=== PATIENT | male | born 1980 | race Hispanic/Latino ===

== ENCOUNTER 2018-08-21 09:50 | Emergency (ER) | payer OTHER ==
[2018-08-21 10:22] LABS: BASOPHILS % (AUTO) 0.3 % (0.0-5.0); HEMATOCRIT 39.8 % (42-54); LYMPHOCYTES % (AUTO) 11.9 % (21.0-51.0); MEAN CORPUSCULAR HEMOGLOBIN 29.7 pg (27.0-33.0); MEAN CORPUSCULAR HGB CONC 34.1 g/dL (32.0-36.0); MEAN CORPUSCULAR VOLUME 87.1 fL (79-99); MONOCYTES % (AUTO) 4.6 % (3.0-13.0); NEUTROPHILS % (AUTO) 82.2 % (40.0-77.0); PLATELET COUNT (AUTO) 338 K/uL (130-400); RED BLOOD CELL COUNT(AUTO) 4.57 MIL/uL (4.50-6.20); RED CELL DISTRIBUTION WIDTH 13.5 % (11.0-15.5)
[2018-08-21 10:27] LABS: APPEARANCE,URINE CLEAR (CLEAR); BILIRUBIN,URINE NEGATIVE (NEGATIVE); COLOR,URINE YELLOW (YELLOW); GLUCOSE, URINE (UA) NEGATIVE (NEGATIVE); KETONES,URINE NEGATIVE (NEGATIVE); LEUKOCYTE ESTERASE ,URINE NEGATIVE (NEGATIVE); NITRATE,URINE NEGATIVE (NEGATIVE); OCCULT BLOOD,URINE TRACE-INTACT (NEGATIVE); PH,URINE 6.5 (5.0-8.0); PROTEIN,URINE TRACE mg/dL (NEGATIVE); UROBILINOGEN,URINE 0.2 mg/dL (0.2-1.0)
[2018-08-21] MEDS ORDERED: SODIUM CHLORIDE 0.9% 1000ML 1,000 ML IV ONE (10:27)
[2018-08-21] MEDS ORDERED: ONDANSETRON HCL 4 MG/2 ML VIAL ONE (10:27)
[2018-08-21 10:30] LABS: POTASSIUM 3.5 mmol/L (3.5-5.1)
[2018-08-21 10:34] LABS: ALBUMIN 2.9 g/dL (3.5-5.0); BILIRUBIN,DIRECT 0.1 mg/dL (0.0-0.3); BILIRUBIN,TOTAL 0.4 mg/dL (0.2-1.0); TOTAL PROTEIN, SERUM 7.9 g/dL (6.0-8.3)
[2018-08-21 10:46] LABS: BACTERIA,URINE None Seen /HPF (None Seen); RBC,URINE 0-1 /HPF (0-1); SQUAMOUS EPITHELIAL CELL,UR Rare /HPF (0-2); WBC,URINE None Seen /HPF (0-1)
== END 2018-08-21 11:23 | disposition home or self-care (01) ==
LOC: EDH 09:50
DX: K52.9 Noninfective gastroenteritis and colitis, unspecified (principal); R53.1 Weakness; F43.10 Post-traumatic stress disorder, unspecified; Z88.0 Allergy status to penicillin
CPT/HCPCS: 36415; 80048; 80076; 81001; 83690; 85025; 93005; 96361; 96374; 99285; J2405; J7030

== ENCOUNTER 2018-11-14 13:54 | Emergency (ER) | payer OTHER ==
[2018-11-14] MEDS ORDERED: ACETAMINOPHEN EXTRA STRENGTH 500 MG TABLET ONE (14:28)
[2018-11-14 14:32] LABS: BASOPHILS % (AUTO) 0.2 % (0.0-5.0); HEMATOCRIT 45.5 % (42-54); LYMPHOCYTES % (AUTO) 4.2 % (21.0-51.0); MEAN CORPUSCULAR HEMOGLOBIN 29.7 pg (27.0-33.0); MEAN CORPUSCULAR HGB CONC 33.8 g/dL (32.0-36.0); MEAN CORPUSCULAR VOLUME 87.9 fL (79-99); MONOCYTES % (AUTO) 2.3 % (3.0-13.0); NEUTROPHILS % (AUTO) 93.3 % (40.0-77.0); PLATELET COUNT (AUTO) 234 K/uL (130-400); RED BLOOD CELL COUNT(AUTO) 5.18 MIL/uL (4.50-6.20); RED CELL DISTRIBUTION WIDTH 14.5 % (11.0-15.5); WHITE BLOOD COUNT (AUTO) 16.9 K/uL (4.8-10.8)
[2018-11-14 14:45] LABS: CREATININE 1.3 mg/dL (0.5-1.5); POTASSIUM 3.8 mmol/L (3.5-5.1)
[2018-11-14 14:50] LABS: ALBUMIN 3.7 g/dL (3.5-5.0); BILIRUBIN,TOTAL 0.7 mg/dL (0.2-1.0); TOTAL PROTEIN, SERUM 8.6 g/dL (6.0-8.3)
[2018-11-14] MEDS ORDERED: ONDANSETRON HCL 4 MG/2 ML VIAL ONE (14:56)
[2018-11-14] MEDS ORDERED: SODIUM CHLORIDE 0.9% 1000ML 1,000 ML IV ONE (14:57)
[2018-11-14] MEDS ORDERED: KETOROLAC TROMETHAMINE 30MG/ML ONE (14:57)
[2018-11-14 15:07] LABS: APPEARANCE,URINE Clear (CLEAR); BILIRUBIN,URINE Negative (NEGATIVE); COLOR,URINE Yellow (YELLOW); GLUCOSE, URINE (UA) Negative (NEGATIVE); KETONES,URINE 15 mg/dL (NEGATIVE); LEUKOCYTE ESTERASE ,URINE Negative (NEGATIVE); NITRATE,URINE Negative (NEGATIVE); OCCULT BLOOD,URINE Trace (NEGATIVE); PROTEIN,URINE POS 1+ mg/dL (NEGATIVE)
[2018-11-14 15:26] LABS: BACTERIA,URINE Rare /HPF (None Seen); RBC,URINE 0-1 /HPF (0-1); SQUAMOUS EPITHELIAL CELL,UR Rare /HPF (0-2); WBC,URINE 0-1 /HPF (0-1)
[2018-11-14] MEDS ORDERED: AZITHROMYCIN 250 MG TABLET PO ONE (16:19)
== END 2018-11-14 16:46 | disposition home or self-care (01) ==
LOC: EDH 13:54
DX: J15.9 Unspecified bacterial pneumonia (principal); R11.2 Nausea with vomiting, unspecified; E86.9 Volume depletion, unspecified; F43.10 Post-traumatic stress disorder, unspecified; Z88.0 Allergy status to penicillin; Z98.890 Other specified postprocedural states; Z72.0 Tobacco use
CPT/HCPCS: 36415; 71046; 80053; 81001; 83605; 83690; 85025; 87040 ×2; 87804 ×2; 96361; 96374; 96375; 99285; J1885; J2405; J7030

== ENCOUNTER 2018-11-18 09:57 | Inpatient (IN) | payer OTHER ==
[~2018-11-18] VITALS: Ht 167.6 cm; Wt 95.5 kg
[2018-11-18] MEDS ORDERED: SODIUM CHLORIDE 0.9% 1000ML 1,000 ML IV ONE (10:18)
[2018-11-18] MEDS ORDERED: KETOROLAC TROMETHAMINE 15MG/ML ONE (10:18)
[2018-11-18 10:46] LABS: BASOPHILS % (AUTO) 0.2 % (0.0-5.0); EOSINOPHILS % (AUTO) 0.8 % (0.0-8.0); HEMATOCRIT 40.5 % (42-54); LYMPHOCYTES % (AUTO) 9.5 % (21.0-51.0); MEAN CORPUSCULAR HEMOGLOBIN 30.4 pg (27.0-33.0); MEAN CORPUSCULAR VOLUME 86.9 fL (79-99); MONOCYTES % (AUTO) 3.5 % (3.0-13.0); PLATELET COUNT (AUTO) 337 K/uL (130-400); RED BLOOD CELL COUNT(AUTO) 4.66 MIL/uL (4.50-6.20); RED CELL DISTRIBUTION WIDTH 14.5 % (11.0-15.5); WHITE BLOOD COUNT (AUTO) 9.8 K/uL (4.8-10.8)
[2018-11-18] MEDS ORDERED: ALBUTEROL SULFATE 0.083% 2.5 MG/3 ML INH IH ONE (10:55)
[2018-11-18 10:56] LABS: CREATININE 1.1 mg/dL (0.5-1.5); POTASSIUM 3.3 mmol/L (3.5-5.1)
[2018-11-18 11:00] LABS: ALBUMIN 2.7 g/dL (3.5-5.0); BILIRUBIN,TOTAL 0.5 mg/dL (0.2-1.0); TOTAL PROTEIN, SERUM 7.9 g/dL (6.0-8.3)
[2018-11-18 11:13] LABS: ABG BASE EXCESS 0.7 mmol/L (-2.0-3.0); ABG HCO3 23.2 mmol/L (21.0-28.0); ABG OXYGEN SATURATION 94.5 % (95.0-99.0); ABG PCO2 32 mmHg (35-48)
[2018-11-18] MEDS ORDERED: METHYLPREDNISOLONE SOD SUCC 40MG/ML 1ML ONE (11:14)
[2018-11-18 11:35] LABS: APPEARANCE,URINE Clear (CLEAR); BILIRUBIN,URINE Negative (NEGATIVE); COLOR,URINE Yellow (YELLOW); GLUCOSE, URINE (UA) Negative (NEGATIVE); KETONES,URINE Negative (NEGATIVE); LEUKOCYTE ESTERASE ,URINE Negative (NEGATIVE); NITRATE,URINE Negative (NEGATIVE); OCCULT BLOOD,URINE Negative (NEGATIVE); PROTEIN,URINE Trace mg/dL (NEGATIVE); UROBILINOGEN,URINE 0.2 mg/dL (0.2-1.0)
[2018-11-18 11:50] LABS: BACTERIA,URINE Few /HPF (None Seen); MUCUS,URINE Moderate LPF (None Seen); RBC,URINE None Seen /HPF (0-1); WBC,URINE 0-1 /HPF (0-1)
[2018-11-18] MEDS ORDERED: MAGNESIUM OXIDE 400 MG TABLET PO ONE (12:13)
[2018-11-18] MEDS ORDERED: POTASSIUM CHLORIDE 20 MEQ ERTAB PO ONE (12:14)
[2018-11-18] MEDS ORDERED: SODIUM CHLORIDE 0.9% 50 ML IV ONE (12:16)
[2018-11-18] MEDS ORDERED: CEFTRIAXONE SODIUM 1 GM ONE (12:16)
[2018-11-18] MEDS ORDERED: POTASSIUM CHLORIDE 20MEQ/100ML 100 ML IV PRN (15:45)
[2018-11-18] MEDS ORDERED: LIDOCAINE HCL-MPF 1% 2ML VIAL IV PRN (15:45)
[2018-11-18] MEDS ORDERED: POTASSIUM CHLORIDE 10% ELIXIR 20 MEQ/15 ML UDCUP PO PRN (15:45)
[2018-11-18 16:00] VITALS: BP 126/83
[2018-11-18] MEDS ORDERED: DOXYCYCLINE 100MG+NS 250ML 250 ML IV SCH (16:00)
[2018-11-18] MEDS ORDERED: GUAIFENESIN-CODEINE 5 ML SYRUP PO PRN (16:00)
--- NOTE | 2018-11-18 16:05 | NUR ---
Pt VAPS Addendum: 11/18/18 at 1605 by CRYS RUBY RT Amended: Links added.
[2018-11-18] MEDS: CEFTRIAXONE SODIUM 1 GM IVP SCH (17:22)
[2018-11-18] MEDS: AZITHROMYCIN 500MG+NS 250ML 250 ML IV SCH (17:22)
[2018-11-18] MEDS: SODIUM CHLORIDE 0.9% 1000ML 1,000 ML IV SCH (17:23)
[2018-11-18] MEDS: METHYLPREDNISOLONE SOD SUCC 40MG/ML 1ML IVP SCH ×2 (17:25→23:18)
[2018-11-18] MEDS ORDERED: SERT100T12 PO (17:38)
[2018-11-18] MEDS ORDERED: TRAZ-185 PO (17:38)
[2018-11-18] MEDS ORDERED: OMEP-50 PO (17:38)
[2018-11-18] MEDS: IPRATROPIUM/ALBUTEROL SULFATE 3 ML SOLUTION IH SCH ×2 (18:19→23:23)
[2018-11-18 19:49] VITALS: BP 140/89
[2018-11-18] MEDS: FAMOTIDINE/PF 20 MG/2 ML VIAL IV SCH (20:15)
--- NOTE | 2018-11-18 20:20 | NUR ---
MEDS SHIFT ASSESSMENT DONE, PLEASE REFER TO CHART. DUE MEDS ADMINISTERED, TOLERATED WELL. KEPT RESTED AND COMFORTABLE WITH HOB ELEVATED. CALL LIGHT WITHIN REACH. FAMILY AT BEDSIDE. WILL MONITOR PT. Addendum: 11/18/18 at 2204 by MARLEEN DUENAS RN RN Amended: Links added.
[2018-11-18] MEDS ORDERED: BENZONATATE 100 MG CAPSULE PO SCH (21:00)
[2018-11-18] MEDS ORDERED: FAMOTIDINE/PF 20 MG/2 ML VIAL IV SCH (21:00)
[2018-11-18] MEDS: POTASSIUM CHLORIDE 20 MEQ ERTAB PO PRN ×2 (21:54→23:19)
--- NOTE | 2018-11-18 21:54 | NUR ---
KCL CONTINUED PO POTASSIUM PROTOCOL KCL LEVEL=3.3. PT TOLERATED MEDS WELL. KEPT RESTED. WILL CONTINUE TO MONITOR.
[2018-11-18 23:44] VITALS: BP 148/75
--- NOTE | 2018-11-19 02:00 | NUR ---
ROUNDS PT FAIRLY ASLEEP WITH RESPIRATIONS EVEN AND UNLABORED. NO NOTED DISTRESS. KEPT UNDISTURBED FOR NOW. CALL LIGHT WITHIN REACH. WILL MONITOR PT.
[2018-11-19] MEDS: CEFTRIAXONE SODIUM 1 GM IVP SCH ×2 (03:32→17:28)
[2018-11-19 04:00] VITALS: BP 149/89
--- NOTE | 2018-11-19 06:02 | NUR ---
GUEST PT REQUESTING A GUEST TRAY FOR HIS FOR BREAKFAST. RESOURCE NURSE MADE AWARE AND APPROVED FOR BREAKFAST. PT AND FAMILY MADE AWARE.
[2018-11-19 06:08] LABS: BASOPHILS % (AUTO) 0.2 % (0.0-5.0); HEMATOCRIT 39.7 % (42-54); MEAN CORPUSCULAR HEMOGLOBIN 30.2 pg (27.0-33.0); MEAN CORPUSCULAR HGB CONC 34.5 g/dL (32.0-36.0); MEAN CORPUSCULAR VOLUME 87.6 fL (79-99); MONOCYTES % (AUTO) 2.5 % (3.0-13.0); NEUTROPHILS % (AUTO) 89.3 % (40.0-77.0); PLATELET COUNT (AUTO) 363 K/uL (130-400); RED BLOOD CELL COUNT(AUTO) 4.53 MIL/uL (4.50-6.20); RED CELL DISTRIBUTION WIDTH 14.8 % (11.0-15.5); WHITE BLOOD COUNT (AUTO) 9.2 K/uL (4.8-10.8)
[2018-11-19] MEDS: METHYLPREDNISOLONE SOD SUCC 40MG/ML 1ML IVP SCH ×2 (06:09→17:28)
[2018-11-19 06:33] LABS: ALBUMIN 2.3 g/dL (3.5-5.0); BILIRUBIN,TOTAL 0.2 mg/dL (0.2-1.0); CREATININE 0.9 mg/dL (0.5-1.5); POTASSIUM 4.2 mmol/L (3.5-5.1); TOTAL PROTEIN, SERUM 7.4 g/dL (6.0-8.3)
[2018-11-19] MEDS: IPRATROPIUM/ALBUTEROL SULFATE 3 ML SOLUTION IH SCH ×4 (07:04→23:38)
[2018-11-19 08:00] VITALS: BP 148/86
[2018-11-19 11:34] VITALS: BP 136/79
[2018-11-19] MEDS: FAMOTIDINE/PF 20 MG/2 ML VIAL IV SCH ×2 (11:36→20:57)
[2018-11-19] MEDS: ENOXAPARIN SODIUM 30 MG/0.3 ML SQ SCH (11:42)
[2018-11-19] MEDS: SODIUM CHLORIDE 0.9% 1000ML 1,000 ML IV SCH (11:43)
[2018-11-19] MEDS ORDERED: BUSP7.5T7 PO (11:48)
--- NOTE | 2018-11-19 12:00 | NUR ---
DR. Bush NOTIFIED HOMED MEDS PEND. TO BE CONTINUED
[2018-11-19] MEDS: PHARMACY COMMUNICATION MISC SCH ×2 (14:45→22:45)
[2018-11-19 15:18] LABS: AMPHET/METH SCREEN,URINE NEGATIVE (NEGATIVE); BARBITURATE SCREEN, URINE NEGATIVE (NEGATIVE); BENZODIAZEPINES SCREEN,URINE NEGATIVE (NEGATIVE); CANNABINOID SCREEN,URINE POSITIVE (NEGATIVE); COCAINE SCREEN,URINE NEGATIVE (NEGATIVE); OPIATE SCREEN,URINE NEGATIVE (NEGATIVE); PHENCYCLIDINE SCREEN,URINE NEGATIVE (NEGATIVE)
[2018-11-19 16:37] VITALS: BP 149/104
--- NOTE | 2018-11-19 16:54 | NUR ---
DCP CM met with pt discussed dc plans. Pt is independent prior to admission, lives at home with spouse. Pt has a cpap. Denies any other equipments/services. Pt feels safe to go back home, still works and drives, spouse able to assist with transportation and needs as necessary. DC plan to home once stable. CM to cont to follow up. Addendum: 11/19/18 at 1655 by FRANSISCO PELAYO LVN CM Amended: Links added.
[2018-11-19] MEDS: AZITHROMYCIN 500MG+NS 250ML 250 ML IV SCH (17:28)
[2018-11-19 20:00] VITALS: BP 138/89
[2018-11-19] MEDS: TRAZODONE HCL 50 MG TAB PO SCH (20:57)
[2018-11-19] MEDS: BUSPIRONE HCL 5 MG TABLET PO SCH (20:57)
[2018-11-20] VITALS: BP 129/88
[2018-11-20 04:00] VITALS: BP 123/82
[2018-11-20] MEDS: CEFTRIAXONE SODIUM 1 GM IVP SCH ×2 (04:48→17:01)
[2018-11-20 05:29] LABS: CRP QUANTITATIVE 144.8 mg/L (0.00-9.0)
[2018-11-20] MEDS: PHARMACY COMMUNICATION MISC SCH ×3 (06:45→22:45)
[2018-11-20] MEDS: IPRATROPIUM/ALBUTEROL SULFATE 3 ML SOLUTION IH SCH (06:53)
[2018-11-20 08:48] VITALS: BP 142/79
[2018-11-20] MEDS: SERTRALINE HCL 50 MG TABLET PO SCH (09:00)
[2018-11-20] MEDS: FAMOTIDINE/PF 20 MG/2 ML VIAL IV SCH ×2 (09:40→21:29)
[2018-11-20] MEDS: ENOXAPARIN SODIUM 30 MG/0.3 ML SQ SCH (09:42)
[2018-11-20] MEDS: BUSPIRONE HCL 5 MG TABLET PO SCH ×2 (09:42→21:29)
[2018-11-20] MEDS: METHYLPREDNISOLONE SOD SUCC 40MG/ML 1ML IVP SCH ×3 (09:42→17:29)
[2018-11-20] MEDS ORDERED: IPRATROPIUM/ALBUTEROL SULFATE 3 ML SOLUTION IH PRN (11:30)
[2018-11-20 11:37] VITALS: BP 132/88
[2018-11-20 16:47] VITALS: BP 147/96
[2018-11-20] MEDS: AZITHROMYCIN 500MG+NS 250ML 250 ML IV SCH (17:56)
[2018-11-20 19:20] VITALS: BP_SYST 135; BP_SYST 147; BP_DIAS 82; BP_DIAS 93
[2018-11-20] MEDS: TRAZODONE HCL 50 MG TAB PO SCH (21:29)
[2018-11-20] MEDS ORDERED: PRED20TA3 PO (21:37)
[2018-11-20] MEDS ORDERED: PRED50TA2 PO (21:37)
[2018-11-21 00:12] VITALS: BP 131/86
[2018-11-21 04:18] VITALS: BP 137/81
[2018-11-21] MEDS: CEFTRIAXONE SODIUM 1 GM IVP SCH (04:18)
[2018-11-21 05:32] LABS: HEMATOCRIT 39.7 % (42-54); MEAN CORPUSCULAR HEMOGLOBIN 29.8 pg (27.0-33.0); MEAN CORPUSCULAR HGB CONC 34.1 g/dL (32.0-36.0); MEAN CORPUSCULAR VOLUME 87.2 fL (79-99); NUCLEATED RED BLOOD CELLS 0.1 % (0.0-0.19); PLATELET COUNT (AUTO) 372 K/uL (130-400); RED BLOOD CELL COUNT(AUTO) 4.55 MIL/uL (4.50-6.20); RED CELL DISTRIBUTION WIDTH 14.9 % (11.0-15.5); WHITE BLOOD COUNT (AUTO) 13.7 K/uL (4.8-10.8)
[2018-11-21 05:43] LABS: CREATININE 0.9 mg/dL (0.5-1.5)
[2018-11-21] MEDS: PHARMACY COMMUNICATION MISC SCH (06:45)
[2018-11-21] MEDS ORDERED: AZIT500T4 PO (07:57)
[2018-11-21 08:39] VITALS: BP 139/78
[2018-11-21] MEDS ORDERED: PREDNISONE 10 MG TABLET PO SCH ×2 (09:00)
[2018-11-21] MEDS: FAMOTIDINE/PF 20 MG/2 ML VIAL IV SCH (09:04)
[2018-11-21] MEDS: SERTRALINE HCL 50 MG TABLET PO SCH (09:04)
[2018-11-21] MEDS: BUSPIRONE HCL 5 MG TABLET PO SCH (09:05)
[2018-11-21] MEDS: ENOXAPARIN SODIUM 30 MG/0.3 ML SQ SCH (09:05)
[2018-11-21 11:30] VITALS: BP 147/81
--- NOTE | 2018-11-21 11:57 | NUR ---
Pt d/c Update Pt d/c home safely, pt sent home on antibiotics, d/c instruction provided on medication, pt also d/c on prednisone, instruction on medication provided and to be taken as directed, PIV taken out, No complication noted, pt accompanied with spouse off the floor by Charge nurse, pt to follow up appointment with primary and pulmonology, appointments made for pt, pt verbalized understanding of d/c instruction.
--- NOTE | 2018-11-21 13:12 | NUR ---
Flu vaccine not available at this time as per pharmacy. Hence, pt not administered flu vaccine on this visit.
== END 2018-11-21 12:35 | disposition home or self-care (01) | DRG 193 ==
LOC: EDH 09:57 → EDHIP 13:06 → 3DH 15:10
PROVIDERS: ADMIT Family Medicine; ATTEND Family Medicine
DX: J18.1 Lobar pneumonia, unspecified organism (principal); J96.01 Acute respiratory failure with hypoxia; E87.6 Hypokalemia; F43.10 Post-traumatic stress disorder, unspecified; E66.9 Obesity, unspecified; F32.9 Major depressive disorder, single episode, unspecified; G47.33 Obstructive sleep apnea (adult) (pediatric); K21.9 Gastro-esophageal reflux disease without esophagitis; K76.0 Fatty (change of) liver, not elsewhere classified; Z87.891 Personal history of nicotine dependence; Z88.0 Allergy status to penicillin; Z68.34 Body mass index [BMI] 34.0-34.9, adult
CPT/HCPCS: 36415; 36600; 71045; 71046; 71250; 80048; 80053; 80305; 81001; 82103; 82550; 82803; 82948; 83520; 83605; 83690; 83874; 84145; 85025; 85027; 85651; 86038; 86140; 86255; 86431; 86701; 87040; 87071; 87205; 87390; 87449; 87486; 87581; 87633; 87798; 87804; 94640; 94664; G0378; J0456; J0696; J1650; J1885; J2920; J3490; J7030; J7512; Q2035

== ENCOUNTER 2018-11-24 14:16 | Emergency (ER) | payer OTHER ==
[~2018-11-24 14:16] MED LIST: AZIT500T4 PO; BUSP7.5T7 PO; OMEP-50 PO; PRED20TA3 PO; PRED50TA2 PO; SERT100T12 PO; TRAZ-185 PO
[2018-11-24] MEDS ORDERED: FAMOTIDINE/PF 20 MG/2 ML VIAL IV ONE (15:02)
[2018-11-24 15:12] LABS: BASOPHILS % (AUTO) 0.6 % (0.0-5.0); HEMATOCRIT 51.6 % (42-54); LYMPHOCYTES % (AUTO) 10.1 % (21.0-51.0); MEAN CORPUSCULAR HEMOGLOBIN 29.2 pg (27.0-33.0); MEAN CORPUSCULAR HGB CONC 33.2 g/dL (32.0-36.0); MEAN CORPUSCULAR VOLUME 87.8 fL (79-99); MONOCYTES % (AUTO) 4.7 % (3.0-13.0); NEUTROPHILS % (AUTO) 83.6 % (40.0-77.0); PLATELET COUNT (AUTO) 509 K/uL (130-400); RED BLOOD CELL COUNT(AUTO) 5.88 MIL/uL (4.50-6.20); RED CELL DISTRIBUTION WIDTH 14.7 % (11.0-15.5); WHITE BLOOD COUNT (AUTO) 19.7 K/uL (4.8-10.8)
[2018-11-24 15:14] LABS: CREATININE 1.1 mg/dL (0.5-1.5); POTASSIUM 4.6 mmol/L (3.5-5.1)
[2018-11-24 15:18] LABS: ALBUMIN 3.4 g/dL (3.5-5.0); BILIRUBIN,TOTAL 0.3 mg/dL (0.2-1.0); TOTAL PROTEIN, SERUM 7.9 g/dL (6.0-8.3)
== END 2018-11-24 16:05 | disposition home or self-care (01) ==
LOC: EDH 14:16
DX: K29.70 Gastritis, unspecified, without bleeding (principal); Z88.0 Allergy status to penicillin; Z98.890 Other specified postprocedural states; F43.10 Post-traumatic stress disorder, unspecified; Z87.891 Personal history of nicotine dependence
CPT/HCPCS: 36415; 71045; 80053; 83690; 84484; 85025; 93005; 96365; 99285; J3490

== ENCOUNTER 2018-12-14 07:42 | Emergency (ER) | payer OTHER ==
[2018-12-14] MEDS ORDERED: SODIUM CHLORIDE 0.9% 1000ML 1,000 ML IV ONE (08:28)
[2018-12-14] MEDS ORDERED: PROCHLORPERAZINE EDISYLATE 10 MG/2 ML VIAL ONE (08:31)
[2018-12-14 08:42] LABS: BASOPHILS % (AUTO) 0.5 % (0.0-5.0); CREATININE 1.1 mg/dL (0.5-1.5); EOSINOPHILS % (AUTO) 0.9 % (0.0-8.0); HEMATOCRIT 44.7 % (42-54); MEAN CORPUSCULAR HGB CONC 34.7 g/dL (32.0-36.0); MEAN CORPUSCULAR VOLUME 86.4 fL (79-99); MONOCYTES % (AUTO) 7.7 % (3.0-13.0); NEUTROPHILS % (AUTO) 75.9 % (40.0-77.0); PLATELET COUNT (AUTO) 189 K/uL (130-400); POTASSIUM 4.2 mmol/L (3.5-5.1); RED BLOOD CELL COUNT(AUTO) 5.18 MIL/uL (4.50-6.20); RED CELL DISTRIBUTION WIDTH 14.4 % (11.0-15.5); WHITE BLOOD COUNT (AUTO) 5.8 K/uL (4.8-10.8)
[2018-12-14 08:48] LABS: ALBUMIN 3.7 g/dL (3.5-5.0); BILIRUBIN,DIRECT 0.1 mg/dL (0.0-0.3); BILIRUBIN,TOTAL 0.3 mg/dL (0.2-1.0); TOTAL PROTEIN, SERUM 7.7 g/dL (6.0-8.3)
== END 2018-12-14 09:52 | disposition home or self-care (01) ==
LOC: EDH 07:42
DX: R53.1 Weakness (principal); F43.10 Post-traumatic stress disorder, unspecified; Z88.0 Allergy status to penicillin; Z98.890 Other specified postprocedural states; Z87.891 Personal history of nicotine dependence
CPT/HCPCS: 36415; 71045; 80048; 80076; 82550; 84484; 85025; 93005; 96374; 99285; J0780; J7030

== ENCOUNTER 2018-12-23 09:48 | Emergency (ER) | payer OTHER ==
[2018-12-23 10:36] LABS: BASOPHILS % (AUTO) 0.9 % (0.0-5.0); EOSINOPHILS % (AUTO) 0.2 % (0.0-8.0); HEMATOCRIT 45.5 % (42-54); LYMPHOCYTES % (AUTO) 15.6 % (21.0-51.0); MEAN CORPUSCULAR HEMOGLOBIN 30.1 pg (27.0-33.0); MEAN CORPUSCULAR HGB CONC 34.8 g/dL (32.0-36.0); MEAN CORPUSCULAR VOLUME 86.5 fL (79-99); MONOCYTES % (AUTO) 7.9 % (3.0-13.0); NEUTROPHILS % (AUTO) 75.4 % (40.0-77.0); PLATELET COUNT (AUTO) 257 K/uL (130-400); RED BLOOD CELL COUNT(AUTO) 5.27 MIL/uL (4.50-6.20); RED CELL DISTRIBUTION WIDTH 14.5 % (11.0-15.5); WHITE BLOOD COUNT (AUTO) 10.3 K/uL (4.8-10.8)
[2018-12-23 11:29] LABS: ALBUMIN 4.2 g/dL (3.5-5.0); BILIRUBIN,TOTAL 1.4 mg/dL (0.2-1.0); CREATININE 1.1 mg/dL (0.5-1.5); TOTAL PROTEIN, SERUM 7.9 g/dL (6.0-8.3)
[2018-12-23] MEDS ORDERED: ACETAMINOPHEN EXTRA STRENGTH 500 MG TABLET ONE (12:16)
[2018-12-23 12:45] LABS: POTASSIUM 4.1 mmol/L (3.5-5.1)
== END 2018-12-23 12:20 | disposition home or self-care (01) ==
LOC: EDH 09:48
DX: M54.6 Pain in thoracic spine (principal); F41.1 Generalized anxiety disorder; M62.81 Muscle weakness (generalized); R07.89 Other chest pain; F41.9 Anxiety disorder, unspecified; Z72.0 Tobacco use; Z88.0 Allergy status to penicillin; Z98.890 Other specified postprocedural states
CPT/HCPCS: 36415; 71046; 80053; 82550; 83880; 84484; 85025; 93005

== ENCOUNTER 2019-10-15 07:36 | Emergency (ER) | payer OTHER, BC ==
[~2019-10-15 07:36] MED LIST changes: -OMEP-50 PO; +OMEP20CA12 PO
[2019-10-15] MEDS ORDERED: SODIUM CHLORIDE 0.9% 1000ML 1,000 ML IV ONE (07:37)
[2019-10-15 08:00] LABS: APPEARANCE,URINE Clear (CLEAR); BILIRUBIN,URINE Negative (NEGATIVE); COLOR,URINE Yellow (YELLOW); GLUCOSE, URINE (UA) Negative (NEGATIVE); KETONES,URINE Trace mg/dL (NEGATIVE); LEUKOCYTE ESTERASE ,URINE Negative (NEGATIVE); NITRATE,URINE Negative (NEGATIVE); OCCULT BLOOD,URINE Moderate (NEGATIVE); PH,URINE 6.5 (5.0-8.0); PROTEIN,URINE POS 1+ mg/dL (NEGATIVE)
[2019-10-15 08:08] LABS: AMPHET/METH SCREEN,URINE NEGATIVE (NEGATIVE); BARBITURATE SCREEN, URINE NEGATIVE (NEGATIVE); BENZODIAZEPINES SCREEN,URINE NEGATIVE (NEGATIVE); CANNABINOID SCREEN,URINE POSITIVE (NEGATIVE); COCAINE SCREEN,URINE NEGATIVE (NEGATIVE); OPIATE SCREEN,URINE NEGATIVE (NEGATIVE); PHENCYCLIDINE SCREEN,URINE NEGATIVE (NEGATIVE)
[2019-10-15 08:19] LABS: BACTERIA,URINE None Seen /HPF (None Seen); MUCUS,URINE Few LPF (None Seen); SQUAMOUS EPITHELIAL CELL,UR 0-2 /HPF (0-2); WBC,URINE 0-1 /HPF (0-1)
[2019-10-15] MEDS ORDERED: KETOROLAC TROMETHAMINE 30MG/ML ONE (08:23)
[2019-10-15 09:59] LABS: ALBUMIN 3.7 g/dL (3.5-5.0); BILIRUBIN,TOTAL 0.3 mg/dL (0.2-1.0); TOTAL PROTEIN, SERUM 7.5 g/dL (6.0-8.3)
== END 2019-10-15 11:55 | disposition home or self-care (01) ==
LOC: EDH 07:36
DX: M62.830 Muscle spasm of back (principal); M94.0 Chondrocostal junction syndrome [Tietze]; M54.5 Low back pain; F43.10 Post-traumatic stress disorder, unspecified; F41.9 Anxiety disorder, unspecified; Z88.0 Allergy status to penicillin; Z98.890 Other specified postprocedural states
CPT/HCPCS: 36415; 74176; 80053; 80305; 81001; 83690; 96361; 96374; 99284; J1885; J7030

== ENCOUNTER 2021-02-23 10:24 | Emergency (ER) | payer OTHER, BC ==
[~2021-02-23] VITALS: Ht 167.6 cm; Wt 95.3 kg
[~2021-02-23 10:24] MED LIST changes: +SERT-440 PO; -SERT100T12 PO
[2021-02-23 10:56] LABS: BASOPHILS % (AUTO) 0.5 % (0.0-5.0); EOSINOPHILS % (AUTO) 1.1 % (0.0-8.0); HEMATOCRIT 48.6 % (42-54); LYMPHOCYTES % (AUTO) 25.5 % (21.0-51.0); MEAN CORPUSCULAR HEMOGLOBIN 29.5 pg (27.0-33.0); MEAN CORPUSCULAR HGB CONC 33.1 g/dL (32.0-36.0); MEAN CORPUSCULAR VOLUME 89.2 fL (79-99); NEUTROPHILS % (AUTO) 63.6 % (40.0-77.0); PLATELET COUNT (AUTO) 235 K/uL (130-400); RED BLOOD CELL COUNT(AUTO) 5.45 MIL/uL (4.50-6.20); RED CELL DISTRIBUTION WIDTH 12.7 % (11.0-15.5); WHITE BLOOD COUNT (AUTO) 6.4 K/uL (4.8-10.8)
[2021-02-23 11:04] LABS: CREATININE 1.2 mg/dL (0.5-1.5); POTASSIUM 4.3 mmol/L (3.5-5.1)
[2021-02-23 11:08] LABS: BILIRUBIN,TOTAL 0.4 mg/dL (0.2-1.0); TOTAL PROTEIN, SERUM 7.6 g/dL (6.0-8.3)
[2021-02-23 11:28] LABS: CREATINE KINASE, TOTAL 192 U/L (21-232); LIPASE 91 U/L (114-286)
[2021-02-23] MEDS ORDERED: SUCRALFATE 1 GM TABLET PO SCH (11:30)
[2021-02-23] MEDS ORDERED: FAMOTIDINE 20MG VIAL IV ONE (11:30)
[2021-02-23] MEDS ORDERED: KETOROLAC 30MG VIAL (30MG/ML) IV ONE (14:30)
[2021-02-23] MEDS ORDERED: NAPR-1181 PO (14:34)
[2021-02-23 15:13] VITALS: BP 128/80
== END 2021-02-23 15:18 | disposition home or self-care (01) ==
LOC: EDH 10:24
DX: K21.9 Gastro-esophageal reflux disease without esophagitis (principal); R07.89 Other chest pain; F32.A Depression, unspecified; F41.9 Anxiety disorder, unspecified; E78.00 Pure hypercholesterolemia, unspecified; Z88.0 Allergy status to penicillin; Z79.1 Long term (current) use of non-steroidal anti-inflammatories (NSAID); Z79.899 Other long term (current) drug therapy; Z79.52 Long term (current) use of systemic steroids
CPT/HCPCS: 36415; 71045; 80053; 82550; 83690; 84484 ×2; 85025; 93005 ×2; 96374; 96375; 99285; J1885; J3490

== ENCOUNTER → 2024-04-10 | Outpatient (CLI) | payer OTHER ==
[~2024-04-10] MED LIST changes: +NAPR-1181 PO
--- NOTE | 2024-04-10 10:43 | HMCIMG ---
CT CORONARY CALCIFICATION SCORING: Anatomic images were reviewed. The calcium score is being generated and reported separately. This report is for the visualized anatomy only. Visualized portions of the lungs are clear. Hilar and mediastinal structures appear normal. Osseous structures are unremarkable. Impression: 1. Negative noncardiac anatomic findings. 2. The calcium score is 0 consistent with absence of calcified plaque. CT was performed with one or more following dose reduction techniques: automated exposure control, adjustment of the mA and kv according to patient's size, or use of a iterative reconstruction technique.
== END | disposition home or self-care (01) ==
LOC: RAH 08:00
PROVIDERS: ATTEND Internal Medicine Cardiovascular Disease
DX: Z13.6 Encounter for screening for cardiovascular disorders (principal)
CPT/HCPCS: 75571